=== PATIENT | female | born 1970 | race Caucasian/White ===

== ENCOUNTER → 2017-06-07 | Day surgery (SDC) | payer OTHER ==
[2017-06-01 11:15] LABS: ANION GAP 12.7 mmol/L (8-16); BLOOD UREA NITROGEN 13 mg/dL (7-26); BUN/CREATININE RATIO 16 (6-25); CALCIUM 9.5 mg/dL (8.4-10.2); CARBON DIOXIDE 30 mmol/L (22-29); CHLORIDE 105 mmol/L (98-107); CREATININE, SERUM 0.79 mg/dL (0.57-1.11); EST GLOMERULAR FILTRATION RATE > 60 ML/MIN (60-); GLUCOSE 94 mg/dL (74-118); POTASSIUM 3.7 mmol/L (3.5-5.1); SODIUM 144 mmol/L (136-145)
[~2017-06-07] MED LIST: BACITRACIN 50,000 UNIT VIAL ONE; BENZONATATE100 MG PO; CARVEDILOL25 MG PO; CEFAZOLIN SOD 1 GM/NS 50ML 50 ML IV ONE; DESLORATADINE5 MG PO; DEXAMETHASONE SOD PHOS INJ 4 MG/ML VIAL ONE; EPHEDRINE SULFATE INJ 50 MG/10 ML SYR ONE; FENTANYL CITRATE/PF 100MCG/2 ML INJ ONE; HYDROMORPHONE 2MG/ML INJ ONE; HYDROXYCHLOROQ200 MG PO; KETOROLAC TROMETHAMINE 30 MG/ML VIAL ONE; LEVOTHYROXINE88 MCG PO; LIDOCAINE HCL 2% LOCAL INJ 5 ML SDV VIAL INJ ONE; LOSARTAN-HCTZ1 EAC2 PO; MIDAZOLAM HCL 2 MG/2 ML VIAL ONE; ONDANSETRON HCL INJ 2 MG/ML VIAL ONE; PHENYLEPHRINE HCL 1% 10 MG/ML VIAL ONE; PROPOFOL IV EMULSION 10 MG/ML 20 ML VIAL IV ONE; PROPOFOL IV EMULSION 10 MG/ML 20 ML VIAL ONE; SEVOFLURANE INHAL SOLN 250 ML PEN BTL ONE
--- NOTE | 2017-06-08 10:27 | Operative Report ---
DATE OF PROCEDURE: June 07, 2017 PREOPERATIVE DIAGNOSIS: Macromastia. POSTOPERATIVE DIAGNOSIS: Macromastia. PROCEDURE PERFORMED: Bilateral breast reduction. HISTORY: The patient is a 47-year-old female who complains of symptomatic macromastia. Risk, benefits and alternatives of treatment were discussed with the patient. She has signed the [employer] consent forms for bilateral breast reduction. DETAILS OF PROCEDURE: Patient was marked preoperatively in the holding area in the upright position using standard inferior pedicle Jensen pattern technique. She was brought to the operating theater. After the induction of adequate general anesthesia, placement of a Vanegas catheter and Betadine compression boots, she was prepped and draped in the supine position. A time out was performed. The procedure was begun by circumscribing both nipple areolar complexes with a 45 mm cookie cutter. The pedicles were designed to be 10 cm in width inferiorly based and these were marked out as well. At this point, the pedicles were de-epithelialized using a scalpel from the apex all the way down to the base of the breast. The wound bed was made hemostatic using the electrocautery. Once the pedicles were de-epithelialized, the medial and lateral vertical borders of the pedicles were developed using the electrocautery. The cautery was used to deepen the incisions through the dermis, the subcutaneous and breast tissue all the way down to the prepectoral fascia. At this point, a curvilinear apex of the pedicle was designed approximately 2 cm cranial to the nipple areola complex to maintain vascularity. Once the pedicle was fully developed, the breast tissue was then undermined in the prepectoral plane widely up to the limits that were marked in order to allow adequate redraping of the tissues without tension. At this juncture, the medial and lateral triangles were incised through the skin and subcutaneous tissues. Bleeding was controlled using the electrocautery. The medial and lateral triangles were then dissected full thickness and removed. At this point, the keyhole was incised through the skin and subcutaneous tissue as well. Bleeding controlled using the electrocautery. The upper flaps were then held vertically, and then they were judiciously thinned to a satisfactory contour, but maintaining sufficient thickness to maintain vascularity. At this point, the wounds were copiously irrigated with bacteriostatic saline. Hemostasis was made absolute using the electrocautery. The breasts were temporarily tacked closed with surgical clips. The patient was sat up and assessed for symmetry. It was noted that additional resection on both breasts was required in order to achieve a symmetric result, as well as a satisfactory cosmetic contour. She was made supine. The surgical clips were removed and the additional tissue was then the resected. At this point, irrigation ensued once again. Hemostasis was made absolute. The breasts were temporarily tacked closed, and the patient was sat up and assessed. Symmetry was noted to be satisfactory, as well as the size and shape of the breasts. The resected weights on the right side measured 547 g and on the left side 611 g. The patient was then made supine. Surgical clips were removed. The pedicles were inspected. There was noted to be good vascularity to the nipple areolar complexes. All the wounds were hemostatic. Then a layered closure was performed utilizing 3-0 Monocryl in an interrupted buried fashion followed by 4-0 Monocryl running subcuticular stitch. Steri-Strips were applied to the incisions. Sterile dressings were applied. The patient was placed in a postsurgical gently compressing bra. She tolerated the procedure well. The estimated blood loss for the procedure was between 100 and 150 mL. She was brought to the recovery room in satisfactory condition, and then discharged with a postoperative instruction sheet, as well as a followup appointment. Job#: [id number] JEANINE
== END | disposition home or self-care (01) ==
LOC: OR 05:39
PROVIDERS: ATTEND Plastic Surgery
DX: N62 Hypertrophy of breast (principal); I10 Essential (primary) hypertension; E03.9 Hypothyroidism, unspecified; M32.9 Systemic lupus erythematosus, unspecified; Z01.810 Encounter for preprocedural cardiovascular examination; Z01.812 Encounter for preprocedural laboratory examination
CPT/HCPCS: 19318; 36415; 80048; 88305; 93005; J1100; J1170; J1885; J2001; J2250; J2370; J2405